=== PATIENT | male | born 1950 | race Caucasian/White ===

== ENCOUNTER 2023-07-11 03:17 | Observation (INO) | payer MEDICARE, OTHER ==
[2023-07-11 03:36] LABS: Bilirubin Negative (Negative); Blood, Urine Large (Negative); Glucose, Urine (Dipstick) Negative (Negative); Ketone, Urine Negative (Negative); Leukocyte Small (Negative); Nitrite Negative (Negative); Protein, Urine (Dipstick) 30 mg/dL (Neg-Trace); Specific Gravity, Urine 1.015 (1.005-1.030); Urobilinogen 0.2 mg/dL (Less than 2)
[2023-07-11 03:38] LABS: Bacteria/HPF Rare-Few HPF (None Seen); CAUTI Indications for Culture Dysuria,urgency,freq; Clarity Slightly Cloudy (Clear); RBC/HPF Greater than 50 HPF (0-3); Squamous Epithelial 0-3 HPF (0-3)
[2023-07-11 03:40] LABS: Urine Culture Reflex Yes Yes
[2023-07-11] MEDS ORDERED: Lactated Ringer's 1,000 ML ONE (04:20)
[2023-07-11] MEDS ORDERED: Oxybutynin 5 MG TAB PO SCH (04:30)
[2023-07-11] MEDS ORDERED: cefTRIAXone (ROCEPHIN) 1 GM VIAL ONE (04:33)
[2023-07-11] MEDS ORDERED: Ondansetron PF 4 MG/2 ML Vial ONE (04:33)
[2023-07-11] MEDS ORDERED: Sodium Chloride 0.9% 100 ML ONE (04:33)
[2023-07-11 04:40] LABS: Burr Cells MODERATE= 6-15 cells (100X) (0-1/hpf); Hematocrit 41.9 % (42.0-52.0); Hemoglobin 14.4 g/dL (14.0-18.0); Lymphocytes 7 % (21-51); MDiff Complete? YES; Mean Corpuscular HGB CONC 34.4 g/dL (32.0-36.0); Mean Corpuscular Hemoglobin 31.1 pg (27.0-31.0); Mean Corpuscular Volume 90.5 fl (78.0-98.0); Mean Platelet Volume 12.5 fL (7.4-10.4); Monocytes 5 % (0-10); Neutrophil 88 % (42-75); Platelet Adequacy Comment Appears Adequate; Platelet Count 205 10x3/uL (130-400); RBC Distribution Width 11.7 % (11.5-14.5); Red Blood Cell (RBC) Count 4.63 mill/uL (4.70-6.10); Target Cells SLIGHT = 2-5 cells (100X) (0-1/hpf); White Blood Cell (WBC) Count 21.9 10x3/uL (4.8-10.8)
[2023-07-11 04:47] LABS: ALT (SGPT) 17 U/L (8-55); AST (SGOT) 11 U/L (5-34); Albumin 3.7 g/dL (3.4-4.8); Alkaline Phosphatase 63 U/L (40-110); Anion Gap 24 mmol/L (10-20); BUN (Urea Nitrogen) 111 mg/dL (8.4-25.7); Bilirubin, Total 1.2 mg/dL (0.2-1.2); Calc. Creatinine Clearance 0 mL/min (70-130); Calcium 8.3 mg/dL (7.8-10.44); Carbon Dioxide 12 mmol/L (23-31); Chloride 103 mmol/L (98-107); Estimated GFR 7; Glucose 199 mg/dL (83-110); Potassium 3.4 mmol/L (3.5-5.1); Protein, Total 6.7 g/dL (5.8-8.1); Sodium 136 mmol/L (136-145)
[2023-07-11] MEDS ORDERED: Sodium Chloride 0.9% 1,000 ML ONE ×2 (05:01→05:34)
[2023-07-11] MEDS ORDERED: Tamsulosin HCl 0.4 MG CAP ONE (05:34)
[2023-07-11 05:45] LABS: INR-International Normal Ratio 1.3; PTT 30.9 sec (22.9-36.1); Prothrombin Time 16.9 sec (12.0-14.7)
[2023-07-11 08:31] LABS: Anion Gap 18 mmol/L (10-20); BUN (Urea Nitrogen) 88 mg/dL (8.4-25.7); Calc. Creatinine Clearance 0 mL/min (70-130); Carbon Dioxide 19 mmol/L (23-31); Chloride 109 mmol/L (98-107); Estimated GFR 11; Glucose 166 mg/dL (83-110); Potassium 3.7 mmol/L (3.5-5.1); Sodium 142 mmol/L (136-145)
[2023-07-11 13:05] LABS: Anion Gap 17 mmol/L (10-20); BUN (Urea Nitrogen) 76 mg/dL (8.4-25.7); Calc. Creatinine Clearance 0 mL/min (70-130); Calcium 8.2 mg/dL (7.8-10.44); Carbon Dioxide 19 mmol/L (23-31); Chloride 111 mmol/L (98-107); Estimated GFR 15; Glucose 154 mg/dL (83-110); Potassium 2.9 mmol/L (3.5-5.1); Sodium 144 mmol/L (136-145)
[2023-07-11] MEDS ORDERED: Potassium Chloride 20 MEQ TAB ONE (13:10)
[2023-07-11 17:24] VITALS: BMI 38.0
[2023-07-11] MEDS: Apixaban 5 MG TAB PO SCH (20:23)
[2023-07-11] MEDS ORDERED: Bisacodyl 5 MG TAB PO SCH (20:45)
[2023-07-11] MEDS ORDERED: Atorvastatin Calcium 10 MG TAB PO SCH (21:00)
[2023-07-11] MEDS ORDERED: Potassium Chloride 20 MEQ TAB PO SCH (23:15)
[2023-07-11] MEDS: Sodium Chloride 0.45% 1,000 ML IV SCH (23:19)
[2023-07-12 05:20] LABS: #Basophils 0.1 thou/uL (0.0-0.2); #Eosinphils 0.3 thou/uL (0.0-0.7); #Lymphocytes 2.3 thou/uL (1.20-3.40); #Monocytes 1.2 thou/uL (0.11-0.59); #Neutrophils 7.8 thou/uL (1.40-6.50); %Basophils 0.9 % (0.0-1.0); %Eosinophils 2.6 % (0.0-10.0); %Lymphocytes 19.5 % (21.0-51.0); %Monocytes 9.9 % (0.0-10.0); Hematocrit 39.2 % (42.0-52.0); Hemoglobin 13.3 g/dL (14.0-18.0); Mean Corpuscular Hemoglobin 31.2 pg (27.0-31.0); Mean Corpuscular Volume 91.6 fl (78.0-98.0); Mean Platelet Volume 11.5 fL (7.4-10.4); Platelet Count 173 10x3/uL (130-400); RBC Distribution Width 11.6 % (11.5-14.5); Red Blood Cell (RBC) Count 4.27 mill/uL (4.70-6.10); White Blood Cell (WBC) Count 11.6 10x3/uL (4.8-10.8)
[2023-07-12 05:38] LABS: Anion Gap 14 mmol/L (10-20)
[2023-07-12 05:48] LABS: BUN (Urea Nitrogen) 42 mg/dL (8.4-25.7); Calc. Creatinine Clearance 59 mL/min (70-130); Calcium 7.7 mg/dL (7.8-10.44); Carbon Dioxide 19 mmol/L (23-31); Chloride 114 mmol/L (98-107); Estimated GFR 40; Glucose 140 mg/dL (83-110); Potassium 3.2 mmol/L (3.5-5.1); Sodium 144 mmol/L (136-145)
[2023-07-12] MEDS ORDERED: Levothyroxine Sodium 100 MCG TAB PO SCH (06:00)
[2023-07-12] MEDS ORDERED: Levothyroxine Sodium 75 MCG TAB PO SCH (06:00)
[2023-07-12] MEDS ORDERED: Potassium Chloride 20 MEQ TAB PO SCH (08:00)
[2023-07-12] MEDS ORDERED: metFORMIN 500 MG TAB PO SCH (08:00)
[2023-07-12 08:22] VITALS: TEMP 98.6
[2023-07-12] MEDS: Apixaban 5 MG TAB PO SCH (08:58)
[2023-07-12] MEDS ORDERED: Amlodipine 5 MG TAB PO SCH (09:00)
[2023-07-12] MEDS ORDERED: Atenolol 25 MG TAB PO SCH (09:00)
[2023-07-12] MEDS ORDERED: Doxazosin 2 MG TAB PO SCH (09:00)
[2023-07-12] MEDS ORDERED: LEVOTHYROXINE SODIUM 175 MCG PO SCH (09:00)
[2023-07-12] MEDS ORDERED: Lisinopril 10 MG TAB PO SCH (09:00)
[2023-07-12] MEDS ORDERED: Non-Formulary Item 1 EACH (Amlodipine Besylate/Benazepril [Lotrel 10-40 Mg Capsule] 1 EAC PO SCH (09:00)
[2023-07-12] MEDS: Sodium Chloride 0.45% 1,000 ML IV SCH (12:14)
[2023-07-12 13:56] VITALS: BP 141/93
== END 2023-07-12 14:25 | disposition home or self-care (01) ==
LOC: MADERS 03:17 → MADMS 14:04
PROVIDERS: ADMIT Family Medicine; ATTEND Family Medicine
PROC: 0TPB70Z Removal of Drainage Device from Bladder, Via Natural or Artificial Opening (ICD-10-PCS; principal; 2023-07-12)
DX: N17.9 Acute kidney failure, unspecified (principal); E87.6 Hypokalemia; N13.30 Unspecified hydronephrosis; N40.1 Benign prostatic hyperplasia with lower urinary tract symptoms; N39.0 Urinary tract infection, site not specified; K21.9 Gastro-esophageal reflux disease without esophagitis; I48.91 Unspecified atrial fibrillation; E07.9 Disorder of thyroid, unspecified; I10 Essential (primary) hypertension; N20.0 Calculus of kidney; E66.9 Obesity, unspecified; R33.9 Retention of urine, unspecified; Z79.890 Hormone replacement therapy; Z79.899 Other long term (current) drug therapy; Z85.46 Personal history of malignant neoplasm of prostate; Z98.890 Other specified postprocedural states; Z68.38 Body mass index [BMI] 38.0-38.9, adult; Z97.8 Presence of other specified devices
CPT/HCPCS: 36415; 51702; 51703; 74176; 80048; 80053; 81001; 82550; 83605; 85025; 85610; 85730; 87040; 87086; 94760; 96361; 96365; 96375; G0378; J0696; J2405; J3490; J7050; J7120

== ENCOUNTER 2023-07-24 16:24 | Emergency (ER) | payer MEDICARE ==
[2023-07-24 17:20] LABS: Bilirubin Negative (Negative); Blood, Urine Large (Negative); Glucose, Urine (Dipstick) Negative (Negative); Ketone, Urine Negative (Negative); Leukocyte Trace (Negative); Nitrite Negative (Negative); Protein, Urine (Dipstick) 30 mg/dL (Neg-Trace); Urobilinogen 0.2 mg/dL (Less than 2); pH, Urine 6.5 (5.0-9.0)
[2023-07-24 17:21] LABS: CAUTI Indications for Culture Dysuria,urgency,freq; Clarity Hazy (Clear)
[2023-07-24 17:26] LABS: WBC/HPF 0-3 HPF (0-3)
[2023-07-24 17:28] LABS: Bacteria/HPF Rare-Few HPF (None Seen); Squamous Epithelial 0-3 HPF (0-3)
[2023-07-24 17:29] LABS: Urine Culture Reflex No No
== END 2023-07-24 17:37 | disposition home or self-care (01) ==
LOC: MADERS 16:24
DX: R33.9 Retention of urine, unspecified (principal); E03.9 Hypothyroidism, unspecified; I48.91 Unspecified atrial fibrillation; I10 Essential (primary) hypertension; K21.9 Gastro-esophageal reflux disease without esophagitis; Z79.899 Other long term (current) drug therapy
CPT/HCPCS: 51702; 81001; 87086; 99283

== ENCOUNTER 2023-08-27 04:46 | Emergency (ER) | payer MEDICARE ==
[2023-08-27 05:14] LABS: Bilirubin Negative (Negative); Blood, Urine Trace (Negative); Clarity Clear (Clear); Glucose, Urine (Dipstick) Negative (Negative); Ketone, Urine Negative (Negative); Leukocyte Negative (Negative); Nitrite Negative (Negative); Protein, Urine (Dipstick) 30 mg/dL (Neg-Trace); Urobilinogen 0.2 mg/dL (Less than 2); pH, Urine 6.5 (5.0-9.0)
[2023-08-27 05:15] LABS: Bacteria/HPF Rare-Few HPF (None Seen); CAUTI Indications for Culture Dysuria,urgency,freq; Squamous Epithelial 0-3 HPF (0-3)
[2023-08-27 05:16] LABS: Urine Culture Reflex No No
== END 2023-08-27 06:22 | disposition home or self-care (01) ==
LOC: MADERS 04:46
DX: R33.9 Retention of urine, unspecified (principal); E03.9 Hypothyroidism, unspecified; K21.9 Gastro-esophageal reflux disease without esophagitis; I10 Essential (primary) hypertension; Z79.899 Other long term (current) drug therapy
CPT/HCPCS: 51702; 81001

== ENCOUNTER 2025-05-28 06:25 | Emergency (ER) | payer MEDICARE ==
[2025-05-28 07:46] LABS: Glucose, Urine (Dipstick) Negative (Negative); Leukocyte Small (Negative); Protein, Urine (Dipstick) 100 mg/dL (Neg-Trace); Specific Gravity, Urine 1.020 (1.005-1.030)
[2025-05-28 07:49] LABS: CAUTI Indications for Culture Urological Procedure; RBC/HPF Greater than 50 HPF (0-3)
[2025-05-28 07:51] LABS: Bacteria/HPF Rare-Few HPF (None Seen)
[2025-05-28 07:52] LABS: Urine Culture Reflex Yes Yes
== END 2025-05-28 07:55 | disposition home or self-care (01) ==
LOC: MADERS 06:25
DX: R33.9 Retention of urine, unspecified (principal); T83.018A Breakdown (mechanical) of other urinary catheter, initial encounter; R73.03 Prediabetes; I48.91 Unspecified atrial fibrillation; E03.9 Hypothyroidism, unspecified; K21.9 Gastro-esophageal reflux disease without esophagitis; I10 Essential (primary) hypertension; Z79.890 Hormone replacement therapy; Z79.899 Other long term (current) drug therapy; Z79.01 Long term (current) use of anticoagulants
CPT/HCPCS: 51702; 81001; 87086; 99283